=== PATIENT | female | born 1980 | race Asian ===

== ENCOUNTER 2016-10-24 11:55 | Emergency (ER) | payer BC ==
[2016-10-24 12:13] VITALS: BP 112/73; PULSE 84; TEMP 98.5; BMI 20.9
--- NOTE | 2016-10-24 12:59 | PDOC ---
History of Present Illness - General Chief Complaint: Wound Infection Stated Complaint: RIGHT BREAST INFECTION Time Seen by Provider: 10/24/16 12:02 History Source: Patient Exam Limitations: No Limitations - History of Present Illness Initial Comments: 10/24/16 12:59 36 year old female with history of breast cancer s/p bilateral mastectomy several years ago with a right breast revision September 2016 sent in from her plastic surgeon's office for R breast infection. The patient had noted redness around where her suture site was. Noted some mild oozing. Denies fevers. Went to her doctor's office today where they prescribed levaquin, monocycline, and rifampin. The office had called Dr. Lopez who requests that he be contacted when the patient arrives to the ED. Past History - Past Medical History Allergies/Adverse Reactions: Allergies Allergy/AdvReac Type Severity Reaction Status Date / Time latex Allergy Mild Itching Verified 10/24/16 11:57 No Known Drug Allergies Allergy Verified 11/19/14 08:54 Home Medications: Ambulatory Orders Sertraline HCl [Zoloft] 100 mg PO DAILY 09/06/16 Levofloxacin [Levaquin] 750 mg PO DAILY 10/24/16 Minocycline HCl 100 mg PO DAILY 10/24/16 Rifampin [Rifadin -] 300 mg PO BID 10/24/16 Anemia: No Asthma: No Cancer: Yes (RIGHT BREAST CA 2009) Cardiac Disorders: No CVA: No COPD: No CHF: No Dementia: No Diabetes: No GI Disorders: No Disorders: No HTN: No Hypercholesterolemia: No Liver Disease: No Seizures: No Thyroid Disease: No - Surgical History Abdominal Surgery: No Appendectomy: No Cardiac Surgery: No Cholecystectomy: No Lung Surgery: No Neurologic Surgery: No Orthopedic Surgery: No - Psycho/Social/Smoking Cessation Hx Anxiety: Yes Suicidal Ideation: No Smoking History: Never smoked Have you smoked in the past 12 months: No Information on smoking cessation initiated: No Hx Alcohol Use: No Drug/Substance Use Hx: No Substance Use Type: None Hx Substance Use Treatment: No Review of Systems - Review of Systems Able to Perform ROS?: Yes Comments:: 10/24/16 13:03 GENERAL/CONSTITUTIONAL: No fever, weakness. HEAD, EYES, EARS, NOSE AND THROAT: No change in vision. No ear pain or discharge. No sore throat. CARDIOVASCULAR: No chest pain or shortness of breath. RESPIRATORY: No cough, wheezing, or hemoptysis. GASTROINTESTINAL: No abdominal pain, nausea, vomiting, diarrhea, or decreased PO intolerance. GENITOURINARY: No dysuria, frequency, or change in urination. MUSCULOSKELETAL: No joint or muscle swelling or pain. No neck or back pain. SKIN: Right breast rash NEUROLOGIC: No headache, vertigo, loss of consciousness, or change in strength/ sensation. ENDOCRINE: No increased thirst. No abnormal weight change. HEMATOLOGIC/LYMPHATIC: No anemia, easy bleeding, or history of blood clots. ALLERGIC/IMMUNOLOGIC: No hives or skin allergy. *Physical Exam - Vital Signs Last Vital Signs Temp Pulse Resp BP Pulse Ox 98.5 F 84 16 112/73 98 10/24/16 11:57 10/24/16 11:57 10/24/16 11:57 10/24/16 11:57 10/24/16 11:57 - Physical Exam Comments: 10/24/16 13:04 GENERAL: Awake, alert, and fully oriented, in no acute distress. HEAD: No signs of trauma EYES: PERRLA, EOMI, sclera anicteric, conjunctiva clear ENT: Auricles normal inspection, hearing grossly normal, nares patent, oropharynx clear without exudates. NECK: Normal ROM, supple, no lymphadenopathy, JVD, or masses LUNGS: Breath sounds equal, clear to auscultation bilaterally. No wheezes, and no crackles HEART: Regular rate and rhythm, normal S1 and S2, no murmurs, rubs or gallops ABDOMEN: Soft, nontender, normoactive bowel sounds. No guarding, no rebound. No masses EXTREMITIES: Normal range of motion, no edema. No clubbing or cyanosis. No cords, erythema, or tenderness NEUROLOGICAL: Cranial nerves II through XII grossly intact. Normal speech, normal gait SKIN: s/p R breast implant. Approximately 4x3 cm erythema with no obvious oozing at this time. Induration noted but no obvious fluctuance. ED Treatment Course - LABORATORY CBC & Chemistry Diagram: 10/24/16 13:02 10/24/16 13:02 - RADIOLOGY Radiology Studies Ordered: Category Date Time Status BREAST US RIGHT COMPLETE [US] Routine Ultrasound 10/24/16 12:34 Ordered Medical Decision Making - Medical Decision Making 10/24/16 13:05 Vital Signs Temp Pulse Resp BP Pulse Ox 98.5 F 84 16 112/73 98 10/24/16 11:57 10/24/16 11:57 10/24/16 11:57 10/24/16 11:57 10/24/16 11:57 Pt's history and physical consistent with right breast cellulitis. Will obtain R breast ultrasound to r/o abscess. Labs, blood cultures. ID consultation with DR. Lopez. 10/24/16 16:01 CBC, BMP 10/24/16 13:02 10/24/16 13:02 CMP Sodium 143 mmol/L (136-145) 10/24/16 13:02 Potassium 4.1 mmol/L (3.5-5.1) 10/24/16 13:02 Chloride 106 mmol/L (98-107) 10/24/16 13:02 Carbon Dioxide 27 mmol/L (22-28) 10/24/16 13:02 Anion Gap 10 (8-16) 10/24/16 13:02 BUN 20 mg/dl (7-18) H 10/24/16 13:02 Creatinine 0.6 mg/dl (0.6-1.3) 10/24/16 13:02 Creat Clearance w eGFR > 60 (>60) 10/24/16 13:02 Random Glucose 93 mg/dl (74-106) 10/24/16 13:02 Lactic Acid 1.2 mmol/L (0.4-2.0) 10/24/16 13:02 Calcium 9.7 mg/dl (8.4-10.2) 10/24/16 13:02 Total Bilirubin 1.2 mg/dl (0.2-1.0) H 10/24/16 13:02 AST 18 U/L (10-42) 10/24/16 13:02 ALT 13 U/L (10-40) 10/24/16 13:02 Alkaline Phosphatase 89 U/L (32-92) 10/24/16 13:02 Total Protein 7.4 g/dl (6.4-8.3) 10/24/16 13:02 Albumin 4.5 g/dl (3.5-5.0) 10/24/16 13:02 Urine Test Results Urine Color Yellow 10/24/16 12:50 Urine Appearance Clear 10/24/16 12:50 Urine pH 5.0 (4.5-8) 10/24/16 12:50 Ur Specific Dalton >= 1.030 (1.005-1.025) H 10/24/16 12:50 Urine Protein Negative (NEGATIVE) 10/24/16 12:50 Urine Glucose (UA) Negative (NEGATIVE) 10/24/16 12:50 Urine Ketones Negative (NEGATIVE) 10/24/16 12:50 Urine Blood Negative (NEGATIVE) 10/24/16 12:50 Urine Nitrite Negative (NEGATIVE) 10/24/16 12:50 Urine Bilirubin Negative (NEGATIVE) 10/24/16 12:50 Ur Leukocyte Esterase Trace (NEGATIVE) H 10/24/16 12:50 Ultrasound demonstrates cellulitis and phlegmon. Dr. Lopez had reviewed the case and saw the patient. He recommends admission for IV antibiotics. However, given personal and home circumstances, the patient is unable to stay in the hospital. Risks were discussed including that this infection may lead to breast surgery or removal of enhancer. Patient reports she verbalizes understandings and risks. She has capacity and is AAOx3. Diagnosis: breast cellulitis. Patient will AMA *DC/Admit/Observation/Transfer Diagnosis at time of Disposition: Cellulitis of breast, Left against medical advice - Discharge Dispostion Disposition: AGAINST MEDICAL ADVICE Condition at time of disposition: Stable Admit: No - Referrals Referrals: Jermaine Lopez MD [Staff Physician] - - Patient Instructions Printed Discharge Instructions: DI for Cellulitis -- Adult Additional Instructions: Please take the antibiotics you were given by your doctor. If you develop worsening redness, please return to the ER. Follow up with your plastic surgeon.
[2016-10-24 13:20] LABS: BASOPHIL 0.7 % (0-2.0); EOSINOPHIL 3.2 % (0-4.5); MCH 25.9 pg (25.7-33.7); MCHC 32.9 g/dl (32.0-36.0); MEAN CELL VOLUME 78.9 fl (80-96); MEAN PLT VOLUME 7.6 fl (7.5-11.1); NEUTROPHILS 65.5 % (42.8-82.8); PLATELET COUNT 316 K/MM3 (134-434); RDW 15.1 % (11.6-15.6)
[2016-10-24 13:23] LABS: ACTIVATED PTT 40.3 SECONDS (24.0-38.9)
[2016-10-24 13:26] LABS: ALBUMIN 4.5 g/dl (3.5-5.0); ALK PHOS 89 U/L (32-92); ANION GAP 10 (8-16); BILIRUBIN,TOTAL 1.2 mg/dl (0.2-1.0); CALCIUM 9.7 mg/dl (8.4-10.2); CO2 27 mmol/L (22-28); CREATININE 0.6 mg/dl (0.6-1.3); GLUCOSE,RANDOM 93 mg/dl (74-106); SGOT/AST 18 U/L (10-42); SGPT/ALT 13 U/L (10-40); TOT PROT 7.4 g/dl (6.4-8.3)
[2016-10-24 13:28] LABS: INR 1.06 (0.82-1.09); PROTHROMBIN TIME (PATIENT) 11.9 SEC (10.2-13.0)
[2016-10-24 15:19] LABS: URINE APPEARANCE Clear; URINE BILIRUBIN Negative (NEGATIVE); URINE BLOOD Negative (NEGATIVE); URINE GLUCOSE (UA) Negative (NEGATIVE); URINE KETONE Negative (NEGATIVE); URINE NITRITE Negative (NEGATIVE); URINE PROTEIN Negative (NEGATIVE); URINE UROBILINOGEN 0.2 E.U/dl (0.2-1.0)
[2016-10-24 15:36] LABS: URINE COLOR YELLOW
[2016-10-24 15:50] LABS: URINE LEUK ESTERASE TRACE (NEGATIVE)
== END 2016-10-24 16:25 | disposition left against medical advice (07) ==
LOC: FER 11:55
DX: N61.0 Mastitis without abscess (principal); Z85.3 Personal history of malignant neoplasm of breast; F41.9 Anxiety disorder, unspecified
CPT/HCPCS: 36415; 76641-TC-RT; 80053; 81003; 81015; 83605; 85025; 85610; 85730; 86850; 86900; 86901; 87040; 87070; 87086; 87186; 87205; 99282-25

== ENCOUNTER 2017-01-05 06:15 | Day surgery (SDC) | payer BC ==
[2017-01-01 11:53] VITALS: BMI 21.1
[~2017-01-05 06:15] MED LIST: BUPIVACAINE HCL/PF 0.25% (2.5MG/ML) 10 ML VIAL IJ ONE
[2017-01-05] MEDS ORDERED: ONDANSETRON 4 MG/2 ML VIAL ONE ×3 (06:59→13:43)
[2017-01-05] MEDS ORDERED: DEXAMETHASONE SOD PHOSPHATE 4 MG/1 ML VIAL ONE ×2 (06:59→08:13)
[2017-01-05] MEDS ORDERED: LIDOCAINE HCL/PF 2% SDV 5ML VIAL ONE (06:59)
[2017-01-05] MEDS ORDERED: ceFAZolin SODIUM 1 GM VIAL ONE ×3 (06:59→11:45)
[2017-01-05] MEDS ORDERED: PHENYLEPHRINE HCL 10 MG/1 ML SINGLE DOSE VIAL ONE (06:59)
[2017-01-05] MEDS ORDERED: ROCURONIUM BROMIDE 50 MG/5 ML VIAL ONE ×5 (07:00→13:59)
[2017-01-05] MEDS ORDERED: ePHEDrine SULFATE 50 MG/1 ML AMPULE ONE (07:00)
[2017-01-05] MEDS ORDERED: HYDROmorphone HCL/PF 1 MG/ML VIAL (FOR PYXIS CHARGING ONLY) ONE (07:00)
[2017-01-05] MEDS ORDERED: PROPOFOL 20 ML ONE ×2 (07:00→08:13)
[2017-01-05] MEDS ORDERED: MIDAZOLAM HCL 2 MG/2 ML SINGLE DOSE VIAL ONE ×2 (07:01)
[2017-01-05] MEDS ORDERED: SODIUM CHLORIDE 0.9% P/F 10 ML VIAL IJ ONE (07:01)
[2017-01-05] MEDS ORDERED: GENTAMICIN SO4 80 MG/2 ML VIAL ONE ×2 (07:10→11:45)
[2017-01-05] MEDS ORDERED: BACITRACIN 15 GM TUBE TOPICAL OINTMENT ONE (07:11)
[2017-01-05] MEDS ORDERED: EPINEPHrine/PF 1 MG/1 ML (1:1,000) AMPULE ONE (07:11)
[2017-01-05] MEDS ORDERED: LIDOCAINE HCL 1%, 10 MG/ML (20ML VIAL) ONE ×2 (07:11→07:19)
[2017-01-05] MEDS ORDERED: SEVOFLURANE 250 ML BTL ONE (07:11)
[2017-01-05] MEDS ORDERED: DESFLURANE GAS 240 ML BOTTLE IH ONE (07:11)
[2017-01-05] MEDS ORDERED: ACETAMINOPHEN INJECTION 100 ML IVPB ONE (07:11)
[2017-01-05] MEDS ORDERED: SODIUM BICARBONATE 8.4% 50 MEQ/50 ML VIAL ONE (07:17)
[2017-01-05] MEDS ORDERED: LIDOCAINE 1%/EPI 1:100000 (20 ML MULTI DOSE VIAL) ONE (07:19)
[2017-01-05] MEDS ORDERED: CEFEPIME HCL 2 GM VIAL (RESTRICTED TO ID) IVPB ONE (08:39)
[2017-01-05] MEDS ORDERED: VANCOMYCIN 1,000 MG in DEXTROSE 5%-WATER - 250 ML IVPB ONE (08:41)
[2017-01-05] MEDS ORDERED: BUPIVACAINE HCL/PF 2.5 MG/ML - 30 ML VIAL IJ ONE (11:13)
[2017-01-05] MEDS ORDERED: BACITRACIN 15 GM TUBE TOPICAL OINTMENT TP ONE (13:11)
[2017-01-05] MEDS ORDERED: BUPIVACAINE HCL/PF 0.25% (2.5MG/ML) 10 ML VIAL IJ ONE (14:45)
[2017-01-05] MEDS ORDERED: ONDANSETRON 4 MG/2 ML VIAL IVPUSH PRN (15:09)
[2017-01-05] MEDS ORDERED: oxyCODONE HCL 5 MG TABLET PO PRN (15:09)
[2017-01-05 16:31] VITALS: TEMP 98.8
[2017-01-05 16:44] VITALS: BP 115/79; PULSE 77
--- NOTE | 2017-01-10 14:16 | PATH ---
Surgical Pathology Report Patient Name: ABRAHAM TONEY [facility]. Rec. #: [id number] /Age/Gender: 1980 (Age: 36) / F Account: [id number] Location: [facility] Taken: 01/05/2017 Received: 01/05/2017 Reported: 01/10/2017 Physicians: Marry Anderson M.D. Specimen(s) Received A: RIGHT BREAST SCAR B: RIGHT BREAST IMPLANT C: LEFT BREAST IMPLANT D: LEFT BREAST SKIN AND TISSUE Clinical History Breast CXR and mastopexy (bilateral) Final Diagnosis A. SCAR, RIGHT BREAST, REVISION: SKIN SHOWING SCAR AND FOREIGN BODY GIANT CELL REACTION. B. IMPLANT, RIGHT BREAST, REMOVAL: IMPLANT, DESCRIBED (GROSS EXAMINATION ONLY). C. IMPLANT, LEFT BREAST, REMOVAL: IMPLANT, DESCRIBED (GROSS EXAMINATION ONLY). D. SKIN AND TISSUE , LEFT BREAST, EXCISION: SKIN AND FIBROADIPOSE TISSUE WITH NO PATHOLOGIC FINDINGS. Electronically Signed Dahlia Leos M.D. Gross Description A. Received in formalin labeled "right breast scar," are 8 mcmahon, irregular skin shaves ranging from 1.2 x 0.4 cm to 5.5 x 0.5 cm. The epidermal surfaces display well-healed scars. Ingot Weigher sections are submitted in one cassette. B. Received fresh labeled "breast implant right," is a 12.0 x 9.5 x 8.0 cm intact breast implant. No soft tissue is present. No sections are submitted, gross only. C. Received fresh labeled "breast implant left," is a 12.5 x 12.5 x 4.5 cm intact breast implant. No soft tissue is present. No sections are submitted, gross only. D. Received in formalin labeled "left breast skin and tissue," is a 10.5 x 2.7 cm mcmahon, elliptical, unoriented portion of skin excised to a depth of 1.7 cm. The epidermal surface is unremarkable. Sectioning reveals underlying yellow, lobulated soft tissue. Ingot Weigher section is submitted in one cassette. 01/09/201701/09/2017
--- NOTE | 2017-02-20 11:40 | OP ---
DATE OF OPERATION: 01/05/2017 PREOPERATIVE DIAGNOSIS: Status post bilateral mastectomy for breast cancer with asymmetry, deformity of reconstructed breast, disproportion of reconstructed breast, and capsular contracture of breast. POSTOPERATIVE DIAGNOSIS: Status post bilateral mastectomy for breast cancer with asymmetry, deformity of reconstructed breast, disproportion of reconstructed breast, and capsular contracture of breast. PROCEDURE: 1. Replacement of right breast tissue catcher helper with a permanent silicone-filled breast implant. 2. Fat grafting to bilateral breast. 3. Revision of bilateral breast reconstruction with raising of the left inframammary fold with skin excision, bilateral breast scar excision. 4. Bilateral breast capsulotomy. SURGEON: Glendy Anderson MD PARTS COUNTER ASSOCIATE: None. ANESTHESIA: General endotracheal anesthesia. COMPLICATIONS: None. SPECIMEN: 1. Right breast scar. 2. Right breast implant . 3. Left breast implant . 4. Left breast skin and tissue. IMPLANTS: Natrelle Inspira from [employer] placed. Right side was 445 mL, reference number TCX-445, serial number [id number]. Left implant was size 470 mL, reference number TCX-470, serial number [id number]. INDICATION FOR PROCEDURE: The patient is a 36-year-old female status post right breast cancer for which she underwent right mastectomy with chemotherapy and postoperative radiation therapy and prophylactic left mastectomy. Patient has had several reconstructive procedures by another surgeon. She previously underwent surgery for right breast tissue catcher helper placement with fat grafting and capsule work. Patient has achieved expansion and presents today for surgery. Extensive preoperative discussion in the office was discussed with both the patient and her . We discussed utilizing textured silicone implant in an effort to decrease capsular contracture. Patient refuses and does not want autologous tissue flap reconstruction at this time. Very high risk of implant failure was discussed with the patient and her prior to surgery, particularly since the patient had cellulitis postoperatively on the right side. We discussed prophylactic antibiotics being provided and the risk of infection. The patient desires decreasing rippling as much as possible and has also chosen a cohesive implant. We also discussed utilizing Vicryl instead of Biosyn since patient had difficulty with sutures "spitting" previously. Consent was obtained for surgery for right breast tissue catcher helper exchanged for textured silicone breast implant, removal of left breast implant and replacement with a new textured silicone breast implant, revision bilateral breast reconstructions, possible bilateral breast scar work including capsulorrhaphy and/or capsulectomy and/or capsulotomy, possible right or left or bilateral placement of acellular dermal matrix, possible repositioning of the left tattooed areola, fat grafting to bilateral breast from possible abdomen/bilateral flank/bilateral inner thigh donor sites. We also discussed that in creating symmetry of the left breast compared to the right and removing skin in the inferior portion of the left breast, that this would further pull the tattooed areolar complex done by the outside plastic surgeon lower and create further tattooed areolar asymmetry. Patient and her expressed that they did not mind this since they were planning to undergo laser removal of the areolar complex tattoos and understood the risks of this. Risks of the procedure included but were not limited to infection, bleeding, scarring, implant loss, need for flap surgery or autologous tissue, need for further fat grafting, pain, capsular contracture, ALCL, fluid collection, skin loss, wound healing problems, blood clots in her leg, groin, or lung. All her questions were answered, and she agreed to proceed. Patient was marked in the sitting position preoperatively. DESCRIPTION OF PROCEDURE: The patient was taken to the operating room and placed supine on the operating table. A timeout procedure was performed. Anesthesia induced, general endotracheal anesthesia. Prophylactic intravenous antibiotics were provided. Arms were padded and wrapped with Kerlix. TEDs and sequential compression devices were placed on her bilateral lower extremities for deep venous thrombosis prophylaxis. Attention was first turned to the right reconstructed breast after prepping and draping in standard sterile manner. Areas to be incised were injected with 1% lidocaine with epinephrine. A number 15 blade was used to excise the right breast scar which was passed off the field and sent for pathology. Wound was deepened with electrocautery. There was significant encapsular contracture encountered which was expected given the previous history of radiation therapy. Tissue catcher helper was intact and was removed and passed off the field and sent for permanent pathology. Wound was copiously irrigated. Utilizing the long-tip electrocautery, capsulotomy was performed superiorly, laterally as well as inferiorly. Capsulotomy was performed in a checkered pattern with care to preserve the overlying skin and dermis and excise the capsule only. Care was taken to maintain mastectomy flap perfusion. Patient complained medially of symmastia previously, and capsulorrhaphy was performed medially before and further medial capsulorrhaphy with 2-0 buried PDS sutures in a [id number] manner in 2 layers was performed. Wound was irrigated with Ancef, bacitracin, and gentamicin irrigation utilizing the no-touch technique and gloves were changed. Silicone sizers were used, and the wound was temporarily closed. Attention was then turned to the left breast. Incision was made in the inframammary area. The left breast was bigger than the right breast. The implant currently in place was removed and appeared to be intact and was a Honor 535 mL implant. This was passed off the field and sent for pathology. Capsulorrhaphy was performed laterally and inferiorly. Attempt was made to raise the left inframammary fold, and as such, the soft tissues were suspended into the rib periosteum to suspend the fold for symmetry. Inferior skin and subcutaneous tissue were subsequently excised in order to make the reconstructed breast more symmetric. Patient appeared to have good skin thickness and subcutaneous tissue, and it was determined that acellular dermal matrix on either side was not needed and would add an additional foreign body on the previously irradiated right side. Ancef, bacitracin, and gentamycin irrigation were used. Left breast capsulotomy was performed medially and superiorly, and capsulorrhaphy was performed laterally and inferiorly with 2 layers as described. Utilizing the no-touch technique, a sterile silicone sizer was used on the left, and wound was temporarily stapled closed. Patient was sat up to assess for symmetry. It was determined that a 470 mL implant fit best on the left side and a 445 mL implant fit best on the right side. The patient was re-placed supine and wounds were opened. Hemostasis was achieved. Wounds were copiously irrigated with antibiotic irrigation. Utilizing the no-touch technique, re-draping and prepping, a 445 mL implant was placed on the right, and a 470 mL implant was placed on the left (right breast implant TCX-445, serial number [id number], Allergan Inspira; left reference number TCX-470, serial number [id number], Allergan [facility] Inspira). During closure, attention was turned to remove the dog-ear in the right lateral breast with number 15 blade. Wound was closed in layers with 2-0 Vicryl sutures in the capsule and subcutaneous tissue in the right breast with the knot facing outward, interrupted intradermal buried 3-0 Vicryl, and a running 4-0 Vicryl in a subcuticular manner. Simple interrupted 4-0 Prolene was placed for reinforcement. Please note, Biosyn was not used since patient had a lot of "spitting" of her previous sutures at her previous surgery. Dermabond was applied. Left breast was closed with 2-0 Vicryl sutures in the capsule and superficial fascial layers. Wound was irrigated. Several subcutaneous 2-0 Vicryl sutures were placed. Interrupted intradermal buried 3-0 Vicryl and running 4-0 Vicryl in a subcuticular manner were placed. Several simple interrupted 4-0 Prolene sutures were placed for reinforcement. Wound was clean, and Dermabond was placed. Please note, prior to wound closure, areas were anesthetized with 0.25% Marcaine plain, particularly into the rib periosteum where the left inframammary fold was raised. Attention was then turned to fat grafting where the abdomen, bilateral flank, and bilateral inner thighs were prepped and draped in a standard sterile manner. Tumescent was infiltrated into these areas with 1300 mL in and 700 mL of aspirate was obtained, 300 mL of fat. Liposuction utilizing the MicroAire and 4-mm cannulas were used. Incision was made in the umbilicus and bilateral groin area and liposuction of the abdomen, flank, and bilateral inner thighs was performed with care to remain deep to the dermis to prevent any contour irregularities. Liposuction wounds were closed with simple interrupted 5-0 nylon sutures and covered with bacitracin, Telfa, and small Tegaderm. Liposuction aspirate was allowed to settle, and utilizing the Aquavage System, the fat was harvested and allowed to settle and injected into the bilateral superomedial cleavage areas with fat grafting cannulas and a number 15 blade in multiple planes and injected slowly. Fat was of good quality. A total of 124 mL of fat was grafted, 57 mL on the right and 67 mL on the left. Fat injection sites were closed with 5-0 nylon sutures and covered with Dermabond and dressings. Procedure was well tolerated. There were no complications. Estimated blood loss was minimal. Patient was extubated and taken to the recovery room in stable condition postoperatively after surgical bra was applied. GLENDY ANDERSON M.D. [id number]
== END 2017-01-05 17:00 | disposition home or self-care (01) ==
LOC: FASU 06:15
PROVIDERS: ATTEND Surgery
PROC: 0HRT0JZ Replacement of Right Breast with Synthetic Substitute, Open Approach (ICD-10-PCS; 2017-01-05)
PROC: 0HRT0JZ Replacement of Right Breast with Synthetic Substitute, Open Approach (ICD-10-PCS; 2017-01-05)
PROC: 0HPT0JZ Removal of Synthetic Substitute from Right Breast, Open Approach (ICD-10-PCS; 2017-01-05)
PROC: 0HRT0JZ Replacement of Right Breast with Synthetic Substitute, Open Approach (ICD-10-PCS; 2017-01-05)
PROC: 0HRV07Z Replacement of Bilateral Breast with Autologous Tissue Substitute, Open Approach (ICD-10-PCS; principal; 2017-01-05 08:47)
PROC: 0HNV0ZZ Release Bilateral Breast, Open Approach (ICD-10-PCS; 2017-01-05 08:47)
PROC: 0HPT0NZ Removal of Tissue Expander from Right Breast, Open Approach (ICD-10-PCS; 2017-01-05 08:47)
DX: N65.0 Deformity of reconstructed breast (principal); N65.1 Disproportion of reconstructed breast; Z85.3 Personal history of malignant neoplasm of breast; Z90.13 Acquired absence of bilateral breasts and nipples; N64.89 Other specified disorders of breast; Z92.21 Personal history of antineoplastic chemotherapy; Z92.3 Personal history of irradiation
CPT/HCPCS: 88300-TC; 88302-TC; 88304-TC; 94760